=== PATIENT | female | born 1995 | race Caucasian/White ===

== ENCOUNTER 2017-01-30 12:41 | Emergency (ER) | payer BC ==
--- NOTE | 2017-01-30 14:42 | UC ---
Eye Complaint HPI - HPI Summary HPI Summary: Left eye with redness and discharge x 2 d and right eye x 1 day with green discharge throughout the day. - History of Current Complaint Stated Complaint: BILATERAL EYE Hx Obtained From: Patient Hx Last Menstrual Period: 06/20/16 ?: No Onset/Duration: Sudden Onset Timing: Constant Severity Initially: Moderate Severity Currently: Moderate Location of Injury: Conjunctiva, Eye Lid (lower) - b/l Aggravating Factor(s): Nothing Alleviating Factor(s): Nothing Associated Signs And Symptoms: Positive: Drainage (Purulent) - Risk Factors Penetrating Injury Risk Factor: Negative Acute Glaucoma Risk Factors: Negative Optic Artery Occlusion Risk Factors: Negative - Allergies/Home Medications Allergies/Adverse Reactions: Allergies Allergy/AdvReac Type Severity Reaction Status Date / Time No Known Allergies Allergy Verified 01/30/17 14:39 Home Medications: Home Medications Norethindrone Acet & Eth Estra [Microgestin 1.5/30 1.5-30 mg-Mcg] 1 tab PO DAILY 01/30/17 [History Confirmed 01/30/17] PMH/Surg Hx/FS Hx/Imm Hx Previously Healthy: Yes Endocrine History Of: Denies: Diabetes - Surgical History Surgical History: Yes 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, 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, 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 - Family History Known Family History: Positive: Cardiac Disease - Social History Occupation: Student - [employer] Lives: With Family Alcohol Use: Occasionally Substance Use Type: None Smoking Status (MU): Never Smoked Tobacco Review of Systems Constitutional: Negative Skin: Negative Eyes: Drainage - b/l, Eye Redness - b/l ENT: Negative Respiratory: Negative Cardiovascular: Negative Gastrointestinal: Negative Genitourinary: Negative Motor: Negative Neurovascular: Negative Musculoskeletal: Negative Neurological: Negative Psychological: Negative All Other Systems Reviewed And Are Negative: Yes Physical Exam Triage Information Reviewed: Yes Appearance: Well-Appearing, No Pain Distress, Well-Nourished Vital Signs Reviewed: Yes Eye Exam: Normal Eyes: Positive: Conjunctiva Inflamed, Discharge - b/l ENT Exam: Normal Dental Exam: Normal Neck exam: Normal Neck: Positive: 1 Respiratory Exam: Normal Cardiovascular Exam: Normal Musculoskeletal Exam: Normal Neurological Exam: Normal Psychological Exam: Normal Skin Exam: Normal Eye Complaint Course/Dx - Course Course Of Treatment: no contact lenses for at least 1 week - Differential Dx/Diagnosis Differential Diagnosis/HQI/PQRI: Conjunctivitis Provider Diagnoses: Conjunctivitis Discharge - Discharge Plan Condition: Good Disposition: HOME Prescriptions: Ciprofloxacin 0.3% OPTH.JOSSELYN* [Cipro 0.3% Opth*] 2 drop BOTH EYES Q4H #1 btl Patient Education Materials: Conjunctivitis (ED) Referrals: Sri Sandra MD [Primary Care Provider] - 3 Days
[2017-01-30 14:43] VITALS: BP 128/73
== END 2017-01-30 14:52 | disposition home or self-care (01) ==
LOC: UCCORT 12:41
DX: H10.9 Unspecified conjunctivitis (principal)
CPT/HCPCS: 99212; G0463

== ENCOUNTER 2017-03-19 11:18 | Emergency (ER) | payer BC ==
[2017-03-19 12:41] VITALS: BP 131/70
--- NOTE | 2017-03-19 12:57 | UC ---
Knee Pain HPI - History of Current Complaint Chief Complaint: UCLowerExtremity Stated Complaint: LEFT KNEE PAIN Time Seen by Provider: 03/19/17 12:50 Hx Obtained From: Patient Hx Last Menstrual Period: 2 weeks ago ?: No Onset/Duration: Gradual Onset, Lasting Weeks - 1, Worse Since - onset, with worsening pain. Severity Initially: Mild Severity Currently: Moderate Character: Sharp - with, Dull, Aching, Stiffness Aggravating Factor(s): Weight Bearing Alleviating Factor(s): Rest Associated Signs And Symptoms: Positive: Swelling. 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1 F 03/19/17 12:35 Pulse 97 03/19/17 12:35 Resp 14 03/19/17 12:35 BP 131/70 03/19/17 12:35 Pulse Ox 97 03/19/17 12:35 Vital Signs Reviewed: Yes Eyes: Positive: Conjunctiva Clear ENT: Positive: Pharynx normal, TMs normal Neck exam: Normal Respiratory Exam: Normal Cardiovascular Exam: Normal Musculoskeletal: Positive: Strength Intact, Other: - Left knee with warm, pain on full flexion. Tender on the patella. Neurological Exam: Normal Psychological Exam: Normal Skin Exam: Normal Knee Pain Course/Dx - Differential Dx/Diagnosis Differential Diagnosis/HQI/PQRI: Contusion, Infection, Sprain Provider Diagnoses: Left knee pain. Discharge - Discharge Plan Condition: Stable Disposition: HOME Patient Education Materials: Swollen Knee Joint (ED) Additional Instructions: if you get worsening pain, swelling, redness and fever go to the ER.
--- NOTE | 2017-03-19 13:45 | RAD ---
INDICATION: Left knee injury. TECHNIQUE: 4 views of the left knee were obtained. FINDINGS: There is soft tissue swelling anterior to the patella. The bones are in normal alignment. No fracture or joint effusion is seen. Joint spaces appear maintained. IMPRESSION: NO EVIDENCE FOR FRACTURE.
[2017-03-22 16:56] LABS: Cyclic Citrullinated Pept IgG <15.6 U
[2017-03-22 20:05] LABS: Lyme Disease IgG Ab WB Negative (Negative)
== END 2017-03-19 13:51 | disposition home or self-care (01) ==
LOC: UCCORT 11:18
DX: M25.562 Pain in left knee (principal)
CPT/HCPCS: 36415; 86038; 86140; 86200; 86617; 99211; G0463

== ENCOUNTER 2017-06-28 16:30 | Emergency (ER) | payer BC ==
[2017-06-28 17:04] VITALS: BP 139/78
--- NOTE | 2017-06-28 17:22 | UC ---
Dizzy HPI HPI Summary: dizziness x 1 day + cold symptoms one week ago no sinus pain or pressure, no fever, no chills increase sx with head movement - History Of Current Complaint Chief Complaint: UCDizziness Stated Complaint: SEVERE DIZZINESS,EARS RINGING,BLURRY VISION Time Seen by Provider: 06/28/17 16:35 Hx Obtained From: Patient Hx Last Menstrual Period: 06/26/17 ?: No Onset/Duration: Gradual Onset, Lasting Days - 1, Still Present Timing: Constant Severity Initially: Moderate Severity Currently: Moderate Character: Room Spinning, Dizzy Aggravating Factor(s): Position Change, Change In Head Position Alleviating Factor(s): Rest, Turning Head Associated Signs And Symptoms: Positive: Nausea, Tinnitus. 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 - Family History Known Family History: Positive: Cardiac Disease Negative: Hypertension, Diabetes - Social History Alcohol Use: Occasionally Substance Use Type: None Smoking Status (MU): Never Smoked Tobacco Have You Smoked in the Last Year: No Review of Systems Constitutional: Negative Skin: Negative Eyes: Negative ENT: Negative Respiratory: Negative Neurological: Weakness Is Patient Immunocompromised?: No All Other Systems Reviewed And Are Negative: Yes Physical Exam Triage Information Reviewed: Yes Appearance: Well-Appearing, No Pain Distress, Well-Nourished Vital Signs: Initial Vital Signs Temp 98.9 F 06/28/17 16:52 Pulse 95 06/28/17 16:52 Resp 20 06/28/17 16:52 BP 139/78 06/28/17 16:52 Pulse Ox 100 06/28/17 16:52 Vital Signs Reviewed: Yes Eyes: Positive: Conjunctiva Clear ENT: Positive: Normal ENT inspection, Hearing grossly normal, Pharynx normal Neck exam: Normal Neck: Positive: Supple, Nontender, No Lymphadenopathy Respiratory Exam: Normal Respiratory: Positive: Chest non-tender, Lungs clear, Normal breath sounds, No respiratory distress Cardiovascular: Positive: RRR, No Murmur, Pulses Normal Abdominal Exam: Normal Abdomen Description: Positive: Soft Bowel Sounds: Positive: Present Neurological: Positive: Alert, Muscle Tone Normal UC Physical Exam Vital Signs On Initial Exam: Initial Vitals Temp Pulse Resp BP Pulse Ox 98.9 F 95 20 139/78 100 06/28/17 16:52 06/28/17 16:52 06/28/17 16:52 06/28/17 16:52 06/28/17 16:52 - Neurological Exam Neurological: Normal, Sensory/Motor Intact, CN Intact II-III, Reflexes Intact, Normal Gait, Speech Normal Dizzy Course/Dx - Differential Dx/Diagnosis Provider Diagnoses: vertigo Discharge - Discharge Plan Condition: Stable Disposition: HOME Prescriptions: Meclizine TAB* [Antivert 12.5 TAB*] 25 mg PO TID PRN #15 tab PRN Reason: Vertigo Patient Education Materials: Vertigo (ED) Forms: *School Release Referrals: Sri Sandra MD [Primary Care Provider] - If Needed
== END 2017-06-28 17:32 | disposition home or self-care (01) ==
LOC: UCCORT 16:30
DX: R42 Dizziness and giddiness (principal)
CPT/HCPCS: 99212; G0463